=== PATIENT | female | born 1965 | race Caucasian/White ===

== ENCOUNTER 2017-03-23 10:15 | Emergency (ER) | payer OTHER ==
[2017-03-23] MEDS ORDERED: Ondansetron ODT 4 MG TAB ONE (10:45)
[2017-03-23] MEDS ORDERED: Mag-Al Plus 1200 MG/1200 MG/120 MG/30 ML UDCUP ONE (10:58)
[2017-03-23] MEDS ORDERED: Lidocaine Viscous Sol 2% 15 ml UD Cup ONE (10:58)
[2017-03-23 11:23] LABS: Bilirubin Negative (Negative); Blood, Urine Trace (Negative); Clarity Slightly Cloudy (Clear); Glucose, Urine (Dipstick) Negative (Negative); Leukocyte Negative (Negative); Nitrite Negative (Negative); Protein, Urine (Dipstick) Negative (Neg-Trace); Specific Gravity, Urine 1.025 (1.005-1.030); Urobilinogen 0.2 mg/dL (0.2-1.0); pH, Urine 5.5 (5.0-9.0)
[2017-03-23 11:31] LABS: Bacteria/HPF 1+ HPF (None Seen); RBC/HPF 0-3 HPF (0-3); Squamous Epithelial 0-3 HPF (0-3); WBC/HPF 0-3 HPF (0-3)
== END 2017-03-23 11:40 | disposition home or self-care (01) ==
LOC: BURERS 10:15
DX: N20.0 Calculus of kidney (principal); F31.9 Bipolar disorder, unspecified; F17.210 Nicotine dependence, cigarettes, uncomplicated
CPT/HCPCS: 81003; 81015; 99284; Q0162

== ENCOUNTER 2017-12-31 12:08 | Emergency (ER) | payer OTHER | END 2017-12-31 12:37 | disposition home or self-care (01) | LOC: BURERS 12:08 | DX: K92.2 Gastrointestinal hemorrhage, unspecified (principal); K64.4 Residual hemorrhoidal skin tags; F31.9 Bipolar disorder, unspecified; F17.210 Nicotine dependence, cigarettes, uncomplicated | CPT/HCPCS: 82274; 99284 ==

== ENCOUNTER 2020-04-22 09:55 | Emergency (ER) | payer OTHER, SELFPAY ==
[2020-04-22] MEDS ORDERED: Fluorescein Opthalmic Strip ONE (10:07)
[2020-04-22] MEDS ORDERED: Tetracaine 0.5% PF 4 ML BOT ONE (10:07)
== END 2020-04-22 10:47 | disposition home or self-care (01) ==
LOC: BURERS 09:55
DX: S05.02XA Injury of conjunctiva and corneal abrasion without foreign body, left eye, initial encounter (principal); W22.8XXA Striking against or struck by other objects, initial encounter; F17.210 Nicotine dependence, cigarettes, uncomplicated
CPT/HCPCS: 99283

== ENCOUNTER 2021-03-04 19:26 | Emergency (ER) | payer OTHER, SELFPAY ==
[2021-03-04] MEDS ORDERED: Ondansetron ODT 4 MG TAB ONE (19:54)
[2021-03-04] MEDS ORDERED: HYDROcodone/Acetaminophen 10/325 mg Tablet ONE (19:54)
[2021-03-04] MEDS ORDERED: Fentanyl 100 MCG/2 ML VIAL ONE (20:16)
== END 2021-03-04 21:10 | disposition home or self-care (01) ==
LOC: BURERS 19:26
DX: S62.336A Displaced fracture of neck of fifth metacarpal bone, right hand, initial encounter for closed fracture (principal); F17.210 Nicotine dependence, cigarettes, uncomplicated; W54.1XXA Struck by dog, initial encounter
CPT/HCPCS: 29125; 96372; J3010; Q0162

== ENCOUNTER 2022-02-03 11:02 | Emergency (ER) | payer OTHER, SELFPAY ==
[2022-02-03] MEDS ORDERED: Ibuprofen 200 MG TAB ONE (11:41)
== END 2022-02-03 11:43 | disposition home or self-care (01) ==
LOC: BURERS 11:02
DX: J42 Unspecified chronic bronchitis (principal); J11.1 Influenza due to unidentified influenza virus with other respiratory manifestations; F17.210 Nicotine dependence, cigarettes, uncomplicated
CPT/HCPCS: 99283

== ENCOUNTER 2025-03-12 09:40 | Emergency (ER) | payer SELFPAY | END 2025-03-12 10:31 | disposition home or self-care (01) | LOC: BURERS 09:40 | DX: J42 Unspecified chronic bronchitis (principal); J30.9 Allergic rhinitis, unspecified; F17.210 Nicotine dependence, cigarettes, uncomplicated ==